=== PATIENT | male | born 1935 | race Two or more races ===

== ENCOUNTER → 2016-05-05 | Outpatient (CLI) | payer OTHER ==
[~2016-05-05] MED LIST: CIP500T PO; ENZA40CA PO; FINA5TAB4 PO; FURO20TA3 PO; LISI10TA6 PO; SACC250C PO
[2016-05-05 12:22] LABS: Basophils # (auto) 0 uL; Basophils % (auto) 0.4 % (0.0-2.0); DEFINITIVE VIEW TRANSMISSION; Eosinophils # (auto) 0.1 uL; Hematocrit 24.3 % (41.0-53.0); Lymphocytes # (auto) 0.3 uL; Lymphocytes % (auto) 4.1 % (10.0-50.0); Mean Corpuscular Hemoglobin 30.1 pg (28.0-32.0); Mean Corpuscular Hgb Conc. 32.9 g/dL (32.0-36.0); Mean Corpuscular Volume 91.5 fL (80.0-100.0); Mean Platelet Volume 7.2 fL (7.4-10.4); Monocytes # (auto) 0.7 uL; Monocytes % (auto) 9.6 % (0.0-12.0); Neutrophils # (auto) 6.4 uL; Neutrophils % (auto) 83.9 % (37.0-80.0); Platelet Count (auto) 339 10^3/uL (140-450); Red Cell Distribution Width 16.1 % (11.6-16.0); White Blood Cell 7.6 10^3/uL (4.4-10.8)
== END | disposition home or self-care (01) ==
LOC: LAB 11:47
PROVIDERS: ATTEND Internal Medicine
DX: Z00.00 Encounter for general adult medical examination without abnormal findings (principal)
CPT/HCPCS: 36415; 85025

== ENCOUNTER → 2016-06-18 | Outpatient (CLI) | payer OTHER ==
[2016-06-18 12:12] LABS: Basophils # (auto) 0 uL; Basophils % (auto) 0.8 % (0.0-2.0); Eosinophils # (auto) 0.1 uL; Eosinophils % (auto) 3.3 % (0.0-7.0); Hemoglobin 9.3 g/dL (13.5-17.5); Lymphocytes # (auto) 0.5 uL; Lymphocytes % (auto) 11.3 % (10.0-50.0); Mean Corpuscular Hgb Conc. 32.2 g/dL (32.0-36.0); Mean Corpuscular Volume 86.8 fL (80.0-100.0); Mean Platelet Volume 7.2 fL (7.4-10.4); Monocytes # (auto) 0.4 uL; Monocytes % (auto) 8.9 % (0.0-12.0); Neutrophils # (auto) 3.1 uL; Neutrophils % (auto) 75.7 % (37.0-80.0); Platelet Count (auto) 263 10^3/uL (140-450); Red Cell Distribution Width 16.6 % (11.6-16.0); White Blood Cell 4.1 10^3/uL (4.4-10.8)
[2016-06-18 13:33] LABS: INR 1.17 (0.9-1.15); Partial Thromboplastin Time 29.3 sec (22.64-33.71); Prothrombin Time 12.6 sec (9.37-12.3)
== END | disposition home or self-care (01) ==
LOC: LAB 11:50
DX: Z01.818 Encounter for other preprocedural examination (principal)
CPT/HCPCS: 36415; 85025; 85610; 85730

== ENCOUNTER → 2016-06-19 | Outpatient (CLI) | payer OTHER ==
[~2016-06-19] MED LIST changes: +IOHEXOL 300 MG/ML 100ML BOTTLE IJ ONE; +LIDOCAINE 2%HCL (LOCAL ANESTH.) INJ 20ML MDV ONE; +MIDAZOLAM HCL 1MG/1ML-2 ML VIAL ONE; +cefTRIAXone 1GM/50ML D5W 50 ML IV ONE; +fentaNYL CITRATE 100 MCG/2 ML VL ONE
== END ==
LOC: XY 12:30
DX: N13.30 Unspecified hydronephrosis (principal)
CPT/HCPCS: 52332; 75984; 76000; C1769; C2625; J0696; J3010; Q9967; J2250

== ENCOUNTER 2016-07-03 11:00 | Emergency (ER) | payer OTHER ==
[~2016-07-03] VITALS: Ht 162.6 cm; Wt 60.8 kg
[~2016-07-03 11:00] MED LIST changes: -IOHEXOL 300 MG/ML 100ML BOTTLE IJ ONE; -LIDOCAINE 2%HCL (LOCAL ANESTH.) INJ 20ML MDV ONE; -MIDAZOLAM HCL 1MG/1ML-2 ML VIAL ONE; -cefTRIAXone 1GM/50ML D5W 50 ML IV ONE; -fentaNYL CITRATE 100 MCG/2 ML VL ONE
[2016-07-03 12:32] LABS: Basophils # (auto) 0 uL; Eosinophils # (auto) 0 uL; Hematocrit 33.4 % (41.0-53.0); Hemoglobin 10.6 g/dL (13.5-17.5); Lymphocytes # (auto) 0.3 uL; Lymphocytes % (auto) 2.5 % (10.0-50.0); Mean Corpuscular Hemoglobin 27.2 pg (28.0-32.0); Mean Corpuscular Hgb Conc. 31.9 g/dL (32.0-36.0); Mean Corpuscular Volume 85.3 fL (80.0-100.0); Mean Platelet Volume 7.1 fL (7.4-10.4); Monocytes # (auto) 0.4 uL; Monocytes % (auto) 3.9 % (0.0-12.0); Neutrophils # (auto) 9.5 uL; Neutrophils % (auto) 93.6 % (37.0-80.0); Platelet Count (auto) 113 10^3/uL (140-450); Red Cell Distribution Width 16.8 % (11.6-16.0); White Blood Cell 10.2 10^3/uL (4.4-10.8)
[2016-07-03 12:49] LABS: Albumin 2.9 g/dL (3.4-5.0); BUN/Creatinine Ratio 19.4; Bilirubin, Total 0.9 mg/dL (0.2-1.0); Calcium 9.6 mg/dL (8.5-10.1); Potassium 4.2 mmol/L (3.5-5.1); Total Protein 7.9 g/dL (6.4-8.2)
[2016-07-03] MEDS ORDERED: IOHEXOL 300 MG/ML 100ML BOTTLE IJ ONE ×2 (19:48)
[2016-07-03 20:27] LABS: INR 1.44 (0.9-1.15); Prothrombin Time 15.6 sec (9.37-12.3)
[2016-07-03 22:01] VITALS: BP 158/78
== END 2016-07-03 22:23 | disposition home or self-care (01) ==
LOC: ER 11:00
DX: R04.2 Hemoptysis (principal); R04.0 Epistaxis; I25.10 Atherosclerotic heart disease of native coronary artery without angina pectoris; J44.9 Chronic obstructive pulmonary disease, unspecified; I25.2 Old myocardial infarction; Z87.891 Personal history of nicotine dependence; R31.9 Hematuria, unspecified
CPT/HCPCS: 36415; 71275; 80053; 85025; 85610; 86850; 86900; 86901; 99285; Q9967

== ENCOUNTER 2016-08-05 08:19 | Outpatient (CLI) | payer OTHER ==
[2016-08-05] MEDS ORDERED: fentaNYL CITRATE 100 MCG/2 ML VL ONE ×2 (08:32→10:26)
[2016-08-05] MEDS ORDERED: MIDAZOLAM HCL 1MG/1ML-2 ML VIAL ONE ×2 (08:32→10:26)
[2016-08-05] MEDS ORDERED: cefTRIAXone 1GM/50ML D5W 50 ML IV ONE (08:40)
[2016-08-05] MEDS ORDERED: IOHEXOL 300 MG/ML 100ML BOTTLE IJ ONE (09:01)
[2016-08-05 09:20] LABS: Basophils # (auto) 0 uL; Basophils % (auto) 0.5 % (0.0-2.0); DEFINITIVE VIEW TRANSMISSION; Eosinophils # (auto) 0.1 uL; Eosinophils % (auto) 2.4 % (0.0-7.0); Lymphocytes # (auto) 0.6 uL; Lymphocytes % (auto) 10.4 % (10.0-50.0); Mean Corpuscular Hemoglobin 29.4 pg (28.0-32.0); Mean Corpuscular Hgb Conc. 33.3 g/dL (32.0-36.0); Mean Corpuscular Volume 88.4 fL (80.0-100.0); Mean Platelet Volume 7.5 fL (7.4-10.4); Monocytes # (auto) 0.4 uL; Monocytes % (auto) 8.4 % (0.0-12.0); Neutrophils # (auto) 4.2 uL; Neutrophils % (auto) 78.3 % (37.0-80.0); Platelet Count (auto) 102 10^3/uL (140-450); White Blood Cell 5.3 10^3/uL (4.4-10.8)
[2016-08-05 09:31] LABS: INR 1.65 (0.9-1.15); Prothrombin Time 18.1 sec (9.37-12.3)
[2016-08-05 09:53] LABS: Platelet Estimate Decreased
[2016-08-05 09:54] LABS: Anisocytosis Slight
[2016-08-05] MEDS ORDERED: LIDOCAINE 2%HCL (LOCAL ANESTH.) INJ 20ML MDV ONE (10:40)
== END 2016-08-05 12:00 | disposition home or self-care (01) ==
LOC: XY 08:19
PROVIDERS: ATTEND Radiology Diagnostic Radiology
PROC: 0TP9XDZ Removal of Intraluminal Device from Ureter, External Approach (ICD-10-PCS; principal; 2016-08-05)
PROC: 0T787DZ Dilation of Bilateral Ureters with Intraluminal Device, Via Natural or Artificial Opening (ICD-10-PCS; 2016-08-05)
DX: N13.30 Unspecified hydronephrosis (principal); R19.09 Other intra-abdominal and pelvic swelling, mass and lump; Z93.6 Other artificial openings of urinary tract status
CPT/HCPCS: 36415; 50387; 75984; 82565; 84520; 85025; 85610; 96374; 96375; C1769; C2625; J0696; J1644; J2250; J3010; J7030; Q9967; 99152

== ENCOUNTER 2016-08-12 09:26 | Inpatient (IN) | payer OTHER ==
[2016-08-12] VITALS (12 sets, daily range): BP systolic 93–116; BP diastolic 42–68
[~2016-08-12] VITALS: Ht 162.6 cm; Wt 58.7 kg
[2016-08-12 10:18] LABS: Basophils # (auto) 0 uL; Basophils % (auto) 0.5 % (0.0-2.0); DEFINITIVE VIEW TRANSMISSION; Eosinophils # (auto) 0.1 uL; Eosinophils % (auto) 1.3 % (0.0-7.0); Hematocrit 19.7 % (41.0-53.0); Lymphocytes # (auto) 0.4 uL; Lymphocytes % (auto) 6.5 % (10.0-50.0); Mean Corpuscular Hgb Conc. 33.5 g/dL (32.0-36.0); Mean Corpuscular Volume 89.6 fL (80.0-100.0); Monocytes # (auto) 0.6 uL; Monocytes % (auto) 8.2 % (0.0-12.0); Neutrophils # (auto) 5.7 uL; Neutrophils % (auto) 83.5 % (37.0-80.0); Platelet Count (auto) 91 10^3/uL (140-450); Red Cell Distribution Width 19.6 % (11.6-16.0); White Blood Cell 6.8 10^3/uL (4.4-10.8)
[2016-08-12 10:38] LABS: Hemoglobin 6.6 g/dL (13.5-17.5)
[2016-08-12 10:39] LABS: Albumin 2.6 g/dL (3.4-5.0); BUN/Creatinine Ratio 20.5; Bilirubin, Total 0.5 mg/dL (0.2-1.0); Calcium 8.7 mg/dL (8.5-10.1); Potassium 3.7 mmol/L (3.5-5.1); Total Protein 6.7 g/dL (6.4-8.2)
[2016-08-12] MEDS ORDERED: SODIUM CHLORIDE 0.9% 500 ML IV ONE (10:45)
[2016-08-12 10:52] LABS: Anisocytosis Slight; Platelet Estimate Decreased
[2016-08-12 11:03] LABS: Urine Bilirubin Negative (Negative); Urine Color Red (Yellow); Urine Glucose Normal (Normal); Urine Ketone Negative (Negative); Urine Nitrite Negative (Negative); Urine RBC 2459 /hpf (0 - 3); Urine Urobilinogen Normal (Negative)
[2016-08-12 11:11] LABS: Urine Blood 3+ /uL (Negative)
[2016-08-12 11:17] LABS: Partial Thromboplastin Time 38.5 sec (22.64-33.71)
[2016-08-12 11:46] LABS: INR 1.61 (0.9-1.15); Prothrombin Time 17.6 sec (9.37-12.3)
[2016-08-12] MEDS ORDERED: HYDROcodone-ACET 10/325MG TAB PO PRN (12:30)
[2016-08-12] MEDS ORDERED: CARVEDILOL 3.125 MG TAB PO ONE (12:30)
[2016-08-12] MEDS ORDERED: FUROSEMIDE 20 MG TAB PO ONE (12:30)
[2016-08-12] MEDS ORDERED: FINASTERIDE 5 MG TAB PO ONE (12:30)
[2016-08-12] MEDS ORDERED: cefTRIAXone 1GM/50ML D5W 50 ML IV ONE (12:30)
[2016-08-12] MEDS ORDERED: DEXTROSE (50%) 50ML SYRG IV PRN (12:30)
[2016-08-12] MEDS ORDERED: NITROGLYCERIN 0.4 MG SL TAB SL PRN (12:45)
[2016-08-12] MEDS ORDERED: TEMAZEPAM 15 MG CAP PO PRN (12:45)
[2016-08-12] MEDS ORDERED: DOCUSATE SOD 100 MG CAP PO PRN (12:45)
[2016-08-12] MEDS ORDERED: ACETAMINOPHEN 325 MG TAB PO PRN (12:45)
[2016-08-12] MEDS ORDERED: HYDROcodone-ACET 5/325MG TAB PO PRN (12:45)
[2016-08-12] MEDS ORDERED: MORPHINE SULF INJ 2 MG/ML SYRINGE 1ML IV PRN ×2 (12:45)
[2016-08-12] MEDS: POTASSIUM CHL 10 Meq TABLET PO SCH (13:00)
[2016-08-12] MEDS: FAMOTIDINE 20 MG TAB PO SCH ×2 (13:00→21:55)
[2016-08-12] MEDS: SODIUM CHLORIDE 0.9% 1,000 ML IV SCH (13:21)
[2016-08-12] MEDS: ACCU-CHEK COMFORT CURVE STRIP VI SCH ×2 (17:00→21:55)
[2016-08-12] MEDS: InsuLIN REG 1unit/0.01ml Soln (100units/ml) SC SCH ×2 (17:00→21:55)
[2016-08-12] MEDS ORDERED: POTA-167 PO (17:11)
[2016-08-12] MEDS ORDERED: FERR140T2 PO (17:11)
[2016-08-12] MEDS ORDERED: ALBU1AER4 IN (17:11)
[2016-08-12] MEDS ORDERED: HYDR-531 PO (17:11)
[2016-08-12] MEDS ORDERED: ALBU0.084 NEB (17:11)
[2016-08-12] MEDS ORDERED: CALC600T64 PO (17:11)
[2016-08-12] MEDS ORDERED: POM (17:11)
[2016-08-12] MEDS ORDERED: CARV6.2551 PO (17:11)
[2016-08-12] MEDS ORDERED: CHOL100029 PO (17:11)
[2016-08-12] MEDS ORDERED: SIMV-13 PO (17:11)
[2016-08-12] MEDS: BUDESONIDE (INHALATION) 0.5 MG/2 ML NEB NEB SCH (18:57)
[2016-08-12] MEDS: ALBUTEROL SULF 2.5 MG/0.5ML(0.5%) NEB SOLN NEB SCH ×2 (18:57→19:34)
[2016-08-12] MEDS: FERROUS SULFATE 325 MG TAB PO SCH (19:05)
[2016-08-12] MEDS: Boost Glucose Control 8 Ounces PO SCH (19:07)
[2016-08-12] MEDS: CARVEDILOL 3.125 MG TAB PO SCH (21:54)
[2016-08-12] MEDS: ATORVASTATIN 20 MG TAB PO SCH (21:55)
[2016-08-12] MEDS: CALCIUM CARB 500 MG CHEW TAB PO SCH (21:55)
[2016-08-12] MEDS ORDERED: PATIENTS OWN MEDICATION IN SCH ×2 (22:00)
[2016-08-13 05:00] VITALS: BP 107/59
[2016-08-13] MEDS: BUDESONIDE (INHALATION) 0.5 MG/2 ML NEB NEB SCH ×2 (05:34→20:07)
[2016-08-13] MEDS: SODIUM CHLORIDE 0.9% 1,000 ML IV SCH ×2 (05:34→22:33)
[2016-08-13] MEDS: ALBUTEROL SULF 2.5 MG/0.5ML(0.5%) NEB SOLN NEB SCH ×3 (05:34→20:07)
[2016-08-13] MEDS: InsuLIN REG 1unit/0.01ml Soln (100units/ml) SC SCH ×2 (06:30→12:09)
[2016-08-13] MEDS: ACCU-CHEK COMFORT CURVE STRIP VI SCH ×2 (06:30→11:30)
[2016-08-13 06:43] LABS: Basophils # (auto) 0 uL; Basophils % (auto) 0.3 % (0.0-2.0); Eosinophils # (auto) 0.1 uL; Eosinophils % (auto) 0.7 % (0.0-7.0); Hematocrit 26.8 % (41.0-53.0); Lymphocytes # (auto) 0.6 uL; Lymphocytes % (auto) 6.6 % (10.0-50.0); Mean Corpuscular Hemoglobin 29.8 pg (28.0-32.0); Mean Corpuscular Hgb Conc. 33.6 g/dL (32.0-36.0); Mean Corpuscular Volume 88.6 fL (80.0-100.0); Mean Platelet Volume 7.8 fL (7.4-10.4); Monocytes # (auto) 0.7 uL; Monocytes % (auto) 7.7 % (0.0-12.0); Neutrophils % (auto) 84.7 % (37.0-80.0); Platelet Count (auto) 101 10^3/uL (140-450); Red Cell Distribution Width 17.7 % (11.6-16.0); White Blood Cell 9.4 10^3/uL (4.4-10.8)
[2016-08-13 07:00] LABS: Albumin 2.6 g/dL (3.4-5.0); Calcium 8.6 mg/dL (8.5-10.1); Potassium 3.8 mmol/L (3.5-5.1)
[2016-08-13 07:04] LABS: BUN/Creatinine Ratio 22.4; Bilirubin, Total 1.6 mg/dL (0.2-1.0); Total Protein 6.3 g/dL (6.4-8.2)
[2016-08-13] MEDS: Boost Glucose Control 8 Ounces PO SCH ×3 (08:00→18:16)
[2016-08-13] MEDS: FERROUS SULFATE 325 MG TAB PO SCH ×3 (08:00→18:16)
[2016-08-13 08:06] LABS: PSA Free >50.00 ng/mL; Prostate Specific Antigen 789.3 ng/mL (0.0-4.0)
[2016-08-13 09:00] VITALS: BP 115/62
[2016-08-13] MEDS: cefTRIAXone 1GM/50ML D5W 50 ML IV SCH (10:36)
[2016-08-13] MEDS: CALCIUM CARB 500 MG CHEW TAB PO SCH ×3 (10:36→22:07)
[2016-08-13] MEDS: MULTIPLE VITAMIN TAB PO SCH (10:37)
[2016-08-13] MEDS: FINASTERIDE 5 MG TAB PO SCH (10:37)
[2016-08-13] MEDS: FAMOTIDINE 20 MG TAB PO SCH ×2 (10:37→22:07)
[2016-08-13] MEDS: FUROSEMIDE 20 MG TAB PO SCH (10:37)
[2016-08-13] MEDS: POTASSIUM CHL 10 Meq TABLET PO SCH (10:37)
[2016-08-13] MEDS: CHOLECALCIFEROL (VITD3) 1,000 UNIT TAB PO SCH (10:37)
[2016-08-13] MEDS: CARVEDILOL 3.125 MG TAB PO SCH ×2 (10:38→22:08)
[2016-08-13 11:17] LABS: Anisocytosis Slight; Ovalocytes FEW; Platelet Estimate Decreased
[2016-08-13 13:00] VITALS: BP 97/47
[2016-08-13 17:00] VITALS: BP 86/42
[2016-08-13 20:43] LABS: Hematocrit 25.6 % (41.0-53.0); Hemoglobin 8.7 g/dL (13.5-17.5)
[2016-08-13 22:00] VITALS: BP 110/59
[2016-08-13] MEDS: ATORVASTATIN 20 MG TAB PO SCH (22:07)
[2016-08-13 23:30] VITALS: BP 101/55
[2016-08-14] VITALS (7 sets, daily range): BP systolic 93–104; BP diastolic 45–56
[2016-08-14 07:12] LABS: Basophils # (auto) 0 uL; Basophils % (auto) 0.2 % (0.0-2.0); DEFINITIVE VIEW TRANSMISSION; Eosinophils # (auto) 0 uL; Eosinophils % (auto) 0.5 % (0.0-7.0); Hematocrit 23.5 % (41.0-53.0); Hemoglobin 7.9 g/dL (13.5-17.5); Lymphocytes # (auto) 0.5 uL; Lymphocytes % (auto) 5.6 % (10.0-50.0); Mean Corpuscular Hemoglobin 29.9 pg (28.0-32.0); Mean Corpuscular Hgb Conc. 33.7 g/dL (32.0-36.0); Mean Corpuscular Volume 88.7 fL (80.0-100.0); Mean Platelet Volume 8.1 fL (7.4-10.4); Monocytes # (auto) 0.8 uL; Neutrophils # (auto) 8.3 uL; Neutrophils % (auto) 85.7 % (37.0-80.0); Platelet Count (auto) 84 10^3/uL (140-450); Red Cell Distribution Width 18.1 % (11.6-16.0); White Blood Cell 9.7 10^3/uL (4.4-10.8)
[2016-08-14 07:21] LABS: Albumin 2.3 g/dL (3.4-5.0); Calcium 8.5 mg/dL (8.5-10.1); Potassium 3.7 mmol/L (3.5-5.1)
[2016-08-14 07:25] LABS: Bilirubin, Total 0.8 mg/dL (0.2-1.0); Total Protein 5.9 g/dL (6.4-8.2)
[2016-08-14] MEDS: ALBUTEROL SULF 2.5 MG/0.5ML(0.5%) NEB SOLN NEB SCH ×4 (07:32→18:24)
[2016-08-14] MEDS: BUDESONIDE (INHALATION) 0.5 MG/2 ML NEB NEB SCH ×2 (07:33→18:24)
[2016-08-14] MEDS: FERROUS SULFATE 325 MG TAB PO SCH ×3 (08:38→18:02)
[2016-08-14] MEDS: Boost Glucose Control 8 Ounces PO SCH ×3 (08:39→18:02)
[2016-08-14] MEDS: cefTRIAXone 1GM/50ML D5W 50 ML IV SCH (08:39)
[2016-08-14] MEDS: CARVEDILOL 3.125 MG TAB PO SCH ×2 (10:00→21:24)
[2016-08-14] MEDS: POTASSIUM CHL 10 Meq TABLET PO SCH (10:31)
[2016-08-14] MEDS: FAMOTIDINE 20 MG TAB PO SCH ×2 (10:31→21:22)
[2016-08-14] MEDS: MULTIPLE VITAMIN TAB PO SCH (10:32)
[2016-08-14] MEDS: CHOLECALCIFEROL (VITD3) 1,000 UNIT TAB PO SCH (10:32)
[2016-08-14] MEDS: CALCIUM CARB 500 MG CHEW TAB PO SCH ×2 (10:32→21:24)
[2016-08-14] MEDS: FUROSEMIDE 20 MG TAB PO SCH (10:32)
[2016-08-14] MEDS: FINASTERIDE 5 MG TAB PO SCH (10:34)
[2016-08-14] MEDS ORDERED: SODIUM CHLORIDE 0.9 % NEB SOLN 3ML NEB ONE (13:27)
[2016-08-14] MEDS ORDERED: FLUCONAZOLE 200MG/100ML 100 ML IV ONE (14:00)
[2016-08-14] MEDS: SODIUM CHLORIDE 0.9% 1,000 ML IV SCH (15:50)
[2016-08-14] MEDS: FLUCONAZOLE 100MG/50ML 50 ML IV SCH (15:50)
[2016-08-14] MEDS: ATORVASTATIN 20 MG TAB PO SCH (21:22)
[2016-08-15 02:00] VITALS: BP 93/50
[2016-08-15] MEDS: ONDANSETRON HCL 4 MG/2 ML VIAL IV PRN ×2 (03:31→07:50)
[2016-08-15 05:00] VITALS: BP 117/89
[2016-08-15] MEDS: ALBUTEROL SULF 2.5 MG/0.5ML(0.5%) NEB SOLN NEB SCH ×3 (06:30→11:33)
[2016-08-15] MEDS: BUDESONIDE (INHALATION) 0.5 MG/2 ML NEB NEB SCH (06:30)
[2016-08-15 07:56] VITALS: BP 123/66
[2016-08-15 08:00] VITALS: BP 123/66
[2016-08-15] MEDS: cefTRIAXone 1GM/50ML D5W 50 ML IV SCH (08:37)
[2016-08-15] MEDS: FERROUS SULFATE 325 MG TAB PO SCH ×2 (08:37→12:19)
[2016-08-15] MEDS: Boost Glucose Control 8 Ounces PO SCH ×2 (08:37→12:18)
[2016-08-15] MEDS: SODIUM CHLORIDE 0.9% 1,000 ML IV SCH (09:09)
[2016-08-15] MEDS ORDERED: FLUCONAZOLE 200MG/100ML 100 ML IV SCH (10:00)
[2016-08-15] MEDS: CARVEDILOL 3.125 MG TAB PO SCH (10:00)
[2016-08-15] MEDS: FUROSEMIDE 20 MG TAB PO SCH (10:08)
[2016-08-15] MEDS: POTASSIUM CHL 10 Meq TABLET PO SCH (10:08)
[2016-08-15] MEDS: FINASTERIDE 5 MG TAB PO SCH (10:09)
[2016-08-15] MEDS: CALCIUM CARB 500 MG CHEW TAB PO SCH (10:09)
[2016-08-15] MEDS: MULTIPLE VITAMIN TAB PO SCH (10:09)
[2016-08-15] MEDS: FAMOTIDINE 20 MG TAB PO SCH (10:09)
[2016-08-15] MEDS: CHOLECALCIFEROL (VITD3) 1,000 UNIT TAB PO SCH (10:09)
[2016-08-15] MEDS ORDERED: CIPR-173 PO (10:27)
[2016-08-15] MEDS ORDERED: ONDA4TAB5 PO (10:27)
[2016-08-15] MEDS ORDERED: FLUC200T50 PO (10:27)
[2016-08-15] MEDS: FLUCONAZOLE 100MG/50ML 50 ML IV SCH (10:52)
[2016-08-15 11:20] VITALS: BP 96/55
[2016-08-15 11:54] VITALS: BP 96/55
== END 2016-08-15 13:06 | disposition home or self-care (01) | DRG 722 ==
LOC: ER 09:28 → TELE 09:29 → TELE-WESTW 14:33
PROVIDERS: ADMIT Internal Medicine; ATTEND Internal Medicine
PROC: 30233N1 Transfusion of Nonautologous Red Blood Cells into Peripheral Vein, Percutaneous Approach (ICD-10-PCS; principal; 2016-08-12)
DX: C61 Malignant neoplasm of prostate (principal); E43 Unspecified severe protein-calorie malnutrition; N02.9 Recurrent and persistent hematuria with unspecified morphologic changes; N39.0 Urinary tract infection, site not specified; E87.1 Hypo-osmolality and hyponatremia; B37.49 Other urogenital candidiasis; N13.30 Unspecified hydronephrosis; R79.1 Abnormal coagulation profile; E78.5 Hyperlipidemia, unspecified; D50.0 Iron deficiency anemia secondary to blood loss (chronic); R19.00 Intra-abdominal and pelvic swelling, mass and lump, unspecified site; R73.9 Hyperglycemia, unspecified; B95.7 Other staphylococcus as the cause of diseases classified elsewhere; D63.8 Anemia in other chronic diseases classified elsewhere; Z96.0 Presence of urogenital implants; Z51.5 Encounter for palliative care; D69.6 Thrombocytopenia, unspecified; J44.9 Chronic obstructive pulmonary disease, unspecified; I25.10 Atherosclerotic heart disease of native coronary artery without angina pectoris; I25.2 Old myocardial infarction; Z98.61 Coronary angioplasty status; Z87.891 Personal history of nicotine dependence; Z93.6 Other artificial openings of urinary tract status; Z68.22 Body mass index [BMI] 22.0-22.9, adult
CPT/HCPCS: 36415; 80053; 81001; 82962; 83036; 84154; 85014; 85018; 85025; 85610; 85730; 86850; 86900; 86901; 86920; 87086; 94640; 96361; 96365; 97163; 99291; J0696; J1450; J2405

== ENCOUNTER 2016-08-16 14:00 | Emergency (ER) | payer OTHER ==
[~2016-08-16] VITALS: Ht 177.8 cm; Wt 59.0 kg
[~2016-08-16 14:00] MED LIST changes: +ALBU0.084 NEB; +ALBU1AER4 IN; +CALC600T64 PO; +CHOL100029 PO; -CIP500T PO; +CIPR-173 PO; -ENZA40CA PO; +FERR140T2 PO; +FLUC200T50 PO; -FURO20TA3 PO; +HYDR-531 PO; -LISI10TA6 PO; +ONDA4TAB5 PO; +POM; +POTA-167 PO; -SACC250C PO; +SIMV-13 PO
[2016-08-16 15:15] VITALS: BP 178/97
[2016-08-16 15:21] LABS: Basophils # (auto) 0 uL; Eosinophils # (auto) 0 uL; Hematocrit 27.7 % (41.0-53.0); Hemoglobin 9.3 g/dL (13.5-17.5); Lymphocytes # (auto) 0.5 uL; Lymphocytes % (auto) 2.5 % (10.0-50.0); Mean Corpuscular Hgb Conc. 33.5 g/dL (32.0-36.0); Mean Corpuscular Volume 89.4 fL (80.0-100.0); Mean Platelet Volume 7.7 fL (7.4-10.4); Monocytes # (auto) 0.7 uL; Monocytes % (auto) 3.7 % (0.0-12.0); Neutrophils # (auto) 16.9 uL; Neutrophils % (auto) 93.8 % (37.0-80.0); Platelet Count (auto) 86 10^3/uL (140-450); Red Cell Distribution Width 18.2 % (11.6-16.0)
[2016-08-16] MEDS ORDERED: SODIUM CHLORIDE 0.9% 1,000 ML IVB ONE (15:24)
[2016-08-16 15:46] LABS: Albumin 2.7 g/dL (3.4-5.0); Anion Gap 17 (5-15); BUN/Creatinine Ratio 18.8; Blood Urea Nitrogen 18 mg/dL (7-18); Calcium 8.8 mg/dL (8.5-10.1); Carbon Dioxide 18 mmol/L (21-32); Chloride 100 mmol/L (98-107); GFR African American 97 mL/min; GFR Non-African American 80 mL/min; Glucose 250 mg/dL (74-106); Magnesium 2.2 mg/dL (1.6-2.6); Potassium 4.5 mmol/L (3.5-5.1); Sodium 135 mmol/L (136-145)
[2016-08-16 15:55] LABS: Alkaline Phosphatase 204 U/L (45-117); Aspartate Aminotransferase 48 U/L (15-37); Lactic Acid w/Reflex 4.6 mmol/L (0.4-2.0); Total Protein 7.2 g/dL (6.4-8.2)
[2016-08-16 16:02] LABS: REFLEX LACTIC ACID YES OR NO YES
== END 2016-08-17 00:39 | disposition expired ==
LOC: ER 14:00 → EDBD 14:00 → ER 08-17 00:39
DX: I61.9 Nontraumatic intracerebral hemorrhage, unspecified (principal); A41.9 Sepsis, unspecified organism; C80.1 Malignant (primary) neoplasm, unspecified; C79.82 Secondary malignant neoplasm of genital organs; D63.8 Anemia in other chronic diseases classified elsewhere; Z79.899 Other long term (current) drug therapy; I25.10 Atherosclerotic heart disease of native coronary artery without angina pectoris; J44.9 Chronic obstructive pulmonary disease, unspecified; E78.5 Hyperlipidemia, unspecified; I25.2 Old myocardial infarction; R41.82 Altered mental status, unspecified; Z87.891 Personal history of nicotine dependence; Z98.61 Coronary angioplasty status
CPT/HCPCS: 36415; 70450; 80053; 80320; 83605; 83735; 84484; 85025; 93005; 99285; J7030